=== PATIENT | male | born 1960 | race Caucasian/White ===

== ENCOUNTER → 2016-06-13 | Outpatient (CLI) | payer BC ==
[~2016-06-13] MED LIST: CHOL1000 PO; CHOL100010 PO; CLON0.5T3 PO; CZR50 PO; ESOM20CA PO; HYDR12.55 PO; MECL1TAB42 PO; MULT-506 PO; SUCR1TAB29 PO; ZNTT/150 PO
[2016-06-13 15:01] LABS: PROSTATE SPECIFIC ANTIGEN 7.12 ng/ml (0.000-4.000); THYROID STIMULATING HORMONE 0.801 uIu/ml (0.300-4.500)
== END | disposition home or self-care (01) ==
LOC: C.LABBC 10:59
PROVIDERS: ATTEND Urology
DX: N40.0 Benign prostatic hyperplasia without lower urinary tract symptoms (principal); R00.2 Palpitations

== ENCOUNTER → 2016-06-23 | Outpatient (CLI) | payer BC ==
[2016-06-23 10:14] LABS: BLOOD UREA NITROGEN 20 mg/dl (7-18)
== END | disposition home or self-care (01) ==
LOC: C.LAB 07:42
PROVIDERS: ATTEND Family Medicine
DX: Z00.00 Encounter for general adult medical examination without abnormal findings (principal)

== ENCOUNTER → 2016-06-27 | Outpatient (CLI) | payer BC ==
[~2016-06-27] MED LIST changes: +GADAVIST IV PRN
--- NOTE | 2016-06-27 08:42 | DIAGNOSTIC IMAGING REPORT ---
Brain MRI WITH AND WITHOUT CONTRAST HISTORY: Headaches. Dizziness. ARNOLD-CHIARI MALFORMATION TECHNIQUE: Multiplanar multisequence MRI of the brain was performed both before and after the intravenous administration of contrast. COMPARISON STUDY: Brain MRI 03/10/2009. FINDINGS: There are no areas of restricted diffusion to suggest acute infarction. The right cerebellar tonsil is positioned 2 mm below the foramen magnum. This is consistent with mild cerebellar tonsillar ectopia. This remains unchanged. No evidence for a Chiari malformation. The paranasal sinuses are clear. The mastoid air cells are clear. The ventricles and sulci are within normal limits for age. There is no mass, hematoma, midline shift. The major vascular flow-voids at the skull base are well maintained. Postcontrast sequences show no areas of abnormal enhancement. IMPRESSION: No acute intracranial abnormality. No change from the prior study. 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 Electronically signed by: Shane Camargo M.D. 06/27/2016 8:40 AM Dictated Date/Time: 06/27/2016 8:27 AM
== END | disposition home or self-care (01) ==
LOC: C.MRIBC 07:39
PROVIDERS: ATTEND Family Medicine
DX: G93.5 Compression of brain (principal)

== ENCOUNTER → 2016-07-28 | Outpatient (CLI) | payer BC ==
[~2016-07-28] MED LIST changes: -GADAVIST IV PRN
[2016-07-28 17:09] LABS: URINE APPEARANCE CLEAR (CLEAR); URINE BILIRUBIN NEG (NEG); URINE COLOR YELLOW; URINE EPITHELIAL CELL AUTO 0-5 /lpf (0-5); URINE NITRITE NEG (NEG); URINE SPECIFIC GRAVITY 1.014 (1.000-1.030); UROBILINOGEN NEG (NEG)
[2016-07-28 17:10] LABS: MANUAL MICROSCOPIC REQUIRED? NO; REVIEW REQ? NO
--- NOTE | 2016-09-04 11:35 | CODING QUERY NO DIAGNOSIS ---
: 1960 TREATMENT RENDERED WITHOUT A DIAGNOSIS To promote full compliance with coding requirements relating to patient care, physician participation is requested in all cases of weigh boss uncertainty. Please assist us with providing a diagnosis/symptom for the test(s) below: A diagnosis/symptom was not documented on your Order. A valid diagnosis/symptom is required to bill all insurances. Please remember that we are unable to code a diagnosis of rule out, probable, possible, questionable, or suspected. Tests that require a diagnosis: DOS: 07/28/16 URINE CULTURE DIAGNOSIS: URINALYSIS DIAGNOSIS: Provider Signature: Date: Thank you Quynh Kat [facility] Health Information Management Once completed, please kindly fax back to [phone] For questions please call [phone]
== END | disposition home or self-care (01) ==
LOC: C.LABBC 14:04
PROVIDERS: ATTEND Physician Assistant Medical
DX: R39.15 Urgency of urination (principal)

== ENCOUNTER → 2016-08-04 | Outpatient (CLI) | payer BC | END | disposition home or self-care (01) | LOC: C.LAB 07:21 | PROVIDERS: ATTEND Nurse Practitioner Family | DX: N40.0 Benign prostatic hyperplasia without lower urinary tract symptoms (principal) ==

== ENCOUNTER → 2016-09-20 | Outpatient (CLI) | payer BC ==
--- NOTE | 2016-09-21 05:35 | PAP/PSG TECHNICIAN REPORT ---
[facility] Cop Polysomnogram Report Study name: None Report date: 09/21/2016 Study date: 09/20/2016 Referring Physician: Cherelle Miller PA-C Name: MATTEO PRESTON Interpreting Physician: Sonny Mendoza M.D. Date of : 1960 Cop: Dede Sykes RPS. Sex: Male Age: 55 StudyType: PSG PAP Weight: 222 lbs Height: 55 years, Height 5' 10" Neck Circum:16in. BMI: 31.85 Medications: Clonazepam 0.5mg, HCTZ 25mg, Losartan Potassium 100mg, Meclizine HCl , Multi Vitamin, Nexium 40mg, Ranitidine HCL 75mg, Vit D 1000unit Patient History Study started on room air with 4cwp cpap in room #8. 55 yr old male here for a titration study. He is here for pressure settings. He is having problems when he sleeps on his back and his right side. He said he feels like his heart slows down. His ESS=8/24. Neck circ=16inches. Parameters Monitored NPSG: E1-M2, E2-M1, Fp1-M2, Fp2-M1, F3-M2, F4-M2, F4-M1, C3-M2, C4-M2, C4-M1, O1-M2, O2-M2, O2-M1, T3-M2, T4-M1, P3-M2, P4-M1, CHIN1, CHIN2, HR, EKG, Legs, PFLOW, SNOR, FLOW, CFLOW, Tidal Volume, THOR, ABDO, SpO2, PLTH, CPRESS, ETCO2 Wave, ETCO2, pH Sleep Architecture Sleep Stages Time at Lights Off 10:12:30 PM STAGES Time (min.) TST (%) Time at Lights On 5:04:30 AM Wake 69.0 -- Total Recording Time (TRT) 412.00 min. N1 15.0 4 Total Sleep Period (TSP) 371.0 min. N2 236.0 69 Total Sleep Time (TST) 343.0min. N3 29.5 9 Awake Time 69.0 min. REM 62.5 18 Wake after Sleep Onset 51.5 min. Sleep Efficiency (SE) 83 % Sleep Onset Latency (MARLEY) 17.5 min. Number of Stage 1 Shifts None Awakenings 14 Stage Changes 55 Number of REM periods 7 REM 62.5 18 REM Latency 46.5 min. NREM 280.5 82 Body Position Analysis Supine Right Left Side Prone Vertical Total Sleep Time (min.) 196.4 180.1 0.0 180.11 0.0 0.0 Total Sleep Time (%) 47% 53% 0% 53 0% N/A% Total Sleep Time REM (min.) 23.5 39.0 0.0 None 0.0 0.0 Total Sleep Time NREM (min.) 139.4 141.1 0.0 None 0.0 0.0 Intermittent Wake (min.) 33.5 35.5 0.0 None 0.0 0.0 Total Sleep Period (%) 48% None None None None None Arousals Myoclonus (PLM) * Events Count Index Events Count Index Spontaneous 11 2 Events Awake (PLMW) 52 45.2 Respiratory 1 0.2 Events Asleep w/ Arousal (PLMA) 1 0.2 PLM 1 0 Events Asleep w/o Arousal (PLMS) 25 4.4 Snoring 7 1 Total Asleep 26 4.5 Total 20 3 Total 78 11 Respiratory Analysis * CA OA MA CH H RERA Total Count 0 0 0 0 9 0 9 Index 0.0 0.0 0.0 0 1.6 0 1.6 Mean Duration 0.0 0.0 0.0 0.00 26.2 0.0 26.2 Longest Duration 0.0 0.0 0.0 0.00 0.0 0.0 51.8 Respiratory Event Summary Total Supine ~Supine Right Left Prone REM NREM Apneas Count 0 0 0 0 N/A N/A 0 0 Index 0.0 0 0 0.0 N/A N/A 0 0 Hypopneas (4% Desat) Count 9 9 0 0 N/A N/A 5 4 Index 1.6 3.3 0 0.0 N/A N/A 4.8 0.9 Apneas & All Hypopneas Count 9 9 0 0 N/A N/A 5 4 Index 1.6 3 0 0 N/A N/A 4.8 0.9 Respiratory Events (Aircraft Air Conditioning Mechanic+All Hyp+RERA) Count 9 9 0 0 N/A N/A 5 4 Index 1.6 3 0 0.0 N/A N/A 4.8 0.9 Respiratory Related Arousal Count 1 9 0 0 N/A N/A 0 1 Index 0.2 0 0 0 N/A N/A 0 0 Snoring Analysis Supine Right Left Prone REM NREM Total Snore duration 11.9 min Snores count 425 26 N/A N/A 18 433 451 Snore mean duration 1.6 Sec Snores index 157 9 N/A N/A 17.3 92.6 78.9 TST with snoring (%) 3.5% Desaturation Event Summary: Minimum %SpO2 Event Count Mean/Min/Max Duration(sec.) Desaturation Index % Time In Bed > 90 11 30.9 / 11.0 / 56.0 1.8 93.8 86 - 90 2 8.9 / 6.8 / 11.0 5.1 6.0 81 - 85 0 N/A 0.0 0.2 76 - 80 0 N/A 0.0 0.0 71 - 75 0 N/A 0.0 0.0 66 - 70 0 N/A 0.0 0.0 61 - 65 0 N/A 0.0 0.0 56 - 60 0 N/A 0.0 0.0 51 - 55 0 N/A 0.0 0.0 < 50 0 N/A 0.0 0.0 Total REM NREM Awake <50% 0.0 min. 0.0 min. 0.0 min. 0.0 min. 51 - 60% 0.0 min. 0.0 min. 0.0 min. 0.0 min. 61 - 70% 0.0 min. 0.0 min. 0.0 min. 0.0 min. 71 - 80% 0.0 min. 0.0 min. 0.0 min. 0.0 min. 81 - 90% 23.9 min. 10.3 min. 10.0 min. 3.6 min. 91 - 100% 363.4 min. 52.1 min. 268.8 min. 42.5 min. Average 92 91 92 92 Minimum SpO2 84 84 88 85 Desaturation Event Index 1.7 5.8 1.3 0.0 # Desat. Events below 89% 6 4 2 N/A Time(%) with Saturation below 89% 0.4 0.3 0.0 0.1 Time(min.) with Saturation below 89% 1.6 1.3 0.2 0.2 Time (mins) REM (mins) NREM (mins) % of TST SpO2 Below 90% 11 6 N5 1.4 SpO2 Below 88% 3 0 0 0 Heart Rate Analysis Min (bpm) Max (bpm) Average (bpm) Awake 49 87 58 NREM 49 81 54 REM 49 66 55 Overall 49 81 54 Supplemental O2 Values Minimum O2 level: None Value Start Time End Time Cop Comments Mr. Preston slept in the right and supine positions. No cardiac arrhythmia or PLM's noted. No bruxism noted. CPAP was initiated at +4 CMH2O and up-titrated to an optimal level of +7 CMH2O, which nearly eliminated all respiratory events and snoring. A medium Quattro Air full face mask by [employer] was used during titration He did not use the restroom during the night. He stated that he slept about the same as usual. The final report will be interpreted and signed by a sleep physician. The completed physician report will then be placed in the patient medical record. Therapy Event: Therapy (cm H20) 4 5 6 7 Total Time at Pressure (min.) 31.8 17.0 20.1 343.1 TST at Pressure (min.) 14.3 17.0 20.1 291.6 # Periods 1 1 1 1 Sleep Onset (min.) 17.5 0.0 0.0 0.0 REM Onset (min.) N/A N/A 15.3 0.0 Sleep Efficiency % 44 100 100 85 Wakefulness (%) 55.1 0.0 0.0 15.0 Wakefulness (min.) 17.5 0.0 0.0 51.5 NREM 1 (%) 6.3 0.0 0.0 3.8 NREM 1 (min.) 2.0 0.0 0.0 13.0 NREM 2 (%) 38.6 60.3 52.2 59.2 NREM 2 (min.) 12.3 10.2 10.5 203.0 NREM 3 (%) 0.0 39.7 23.6 5.2 NREM 3 (min.) 0.0 6.7 4.8 18.0 REM (%) 0.0 0.0 24.2 16.8 REM (min.) 0.0 0.0 4.9 57.6 # Arousals 1 0 3 16 Arousal Index 4.2 0.0 8.9 3.3 # Snore 127 158 35 131 Snore Index 534.0 558.4 104.4 27.0 AHI 0.0 0.0 20.9 0.4 AHI Supine 0.0 0.0 20.9 1.1 AHI Non-Supine N/A N/A N/A 0.0 NREM AHI 0.0 0.0 15.7 0.0 REM AHI N/A N/A 37.0 2.1 RDI 0.0 0.0 20.9 0.4 # Obstructive 0 0 0 0 # Central Ap 0 0 0 0 # Mixed 0 0 0 0 # Hypopneas 0 0 7 2 RERAS 0 0 0 0 Total Respiratory Events 0 0 7 2 Time Below SpO2 89.00% (min.) 0.0 0.0 0.6 0.8 Mean NREM SpO2 (%) 91 91 91 92 Mean REM SpO2 (%) N/A N/A 90 92 Mean Sleep SpO2 (%) 91 91 91 92 Min NREM SpO2 (%) 89 90 88 89 Min REM SpO2 (%) N/A N/A 86 84 Position Supine (min.) 14.3 17.0 20.1 111.5 Position Non-supine (min.) 0.0 0.0 0.0 180.1 LM Index Sleep 4.2 3.5 3.0 4.7 LM Index NREM 4.2 3.5 3.9 3.1 LM Index REM N/A N/A 0.0 11.5 Mean Heart Rate (bpm) 53 54 54 54 Min Heart Rate (bpm) 50 52 51 49
--- NOTE | 2016-09-25 17:33 | POLYSOMNOGRAPH REPORT ---
CLINICAL DATA: A 55-year-old male with a BMI of 31.9 referred by Cherelle Miller for CPAP titration study. He currently is on CPAP and uses clonazepam for PLMD. He is having problems whenever he sleeps on his back and right side. His Munger sleepiness score was 8/24. SLEEP ARCHITECTURE: Total recording time was 412 minutes. Total sleep period was 371 minutes. Total sleep time was 343 minutes divided between 280.5 minutes of non-REM sleep and 62.5 minutes of REM sleep. Sleep onset latency was 17.5 minutes. REM latency was 46.5 minutes. Sleep efficiency was 83%. Wake after sleep onset was 51.5 minutes. Sleep consisted of stage N1 4%, stage N2 69%, stage N3 9%, and REM 18%. AROUSAL DATA: Twenty arousals were recorded for an index of 3 per hour. PERIODIC LIMB MOVEMENTS DATA: Twenty six limb movements during sleep were noted for an index of 4.5 per hour with arousal index of 0.2 per hour. RESPIRATORY DATA: The AHI was 1.6. There were 9 hypopneic episodes with mean duration of 26.2 seconds. OXIMETRY DATA: Very transient nocturnal hypoxemia was seen. The oxygen fabrice was 84% during REM. The mean saturation was 92%. Time below 88% was 3 minutes. ELECTROCARDIOGRAM: Heart rates ranged from 49-81 beats per minute. No arrhythmias were noted. WHEEL WORKER'S COMMENTS AND TREATMENT SUMMARY: The patient slept in the right and supine positions. A medium Quattro Air full facemask by [employer] was used. He was titrated up to 7 cm water pressure. At his final pressure setting, he slept for 291.6 minutes with an AHI of 0.4. IMPRESSION: Obstructive sleep apnea corrected with CPAP 7 cm of water pressure using a medium Quattro full facemask by [employer]. RECOMMENDATIONS: The patient's CPAP should be adjusted to 7 cm of water pressure. Follow within 90 days to document efficacy and compliance is recommended. MICA
== END | disposition home or self-care (01) ==
LOC: C.NEUR 20:00
PROVIDERS: ATTEND Physician Assistant Medical
DX: G47.30 Sleep apnea, unspecified (principal)

== ENCOUNTER → 2016-10-19 | Day surgery (SDC) | payer BC ==
[2016-10-03 16:18] VITALS: Ht 177.8 cm; Wt 95.5 kg
[~2016-10-19] VITALS: Ht 177.8 cm; Wt 95.5 kg
[~2016-10-19] MED LIST changes: +IOPAMIDOL INJ 61% 15 ML VIAL ONE; +LIDOCAINE HCL 1% MPF 5 ML VIAL ONE; +SODIUM CHLORIDE 0.9% INJ 10 ML VIAL ONE; -ZNTT/150 PO
--- NOTE | 2016-10-19 13:47 | History & Physical Bridge - SC ---
H&P Re-Evaluation Bridge Note: I have examined the patient, reviewed the History & Physical and in the interval since the performance of the History & Physical I have noted the following changes of clinical significance: No changes noted
--- NOTE | 2016-10-19 14:20 | Discharge Instructions ---
Discharge Instructions Date of Service Oct 19, 2016. Visit Reason for Visit: Lumbar Radiculopathy Discharge Discharge Diagnosis / Problem: left leg pain Discharge Goals Goal(s): Decrease discomfort, Improve function Activity Recommendations Activity Limitations: resume your previous activity Anesthesia . Post Anesthesia Instructions: If you have had General Anesthesia or IV Sedation: * Do not drive today. * Resume driving when surgeon permits. * Do not make important decisions or sign legal documents today. * Call surgeon for: 1. Temperature elevations greater than 101 degrees F. 2. Uncontrollable pain. 3. Excessive bleeding. 4. Persistent nausea and vomiting. 5. Medication intolerance (nausea, vomiting or rash). * For nausea and vomiting use only clear liquids such as: tea, soda, bouillon until nausea subsides, then gradually increase diet as tolerated. * If you have any concerns or questions, call your surgeon's office. If physician is unavailable and it is an emergency, call 911 or go to the nearest emergency room. . Diet Recommendations Recommended Home Diet: resume previous diet Procedures Procedures Performed: LUMBAR EPIDURAL STEROID INJECTION Pending Studies Studies pending at discharge: no Medical Emergencies . Who to Call and When: Medical Emergencies: If at any time you feel your situation is an emergency, please call 911 immediately. . Non-Emergent Contact Non-Emergency issues call your: Specialist . . "Provider Documentation" section prepared by Javon Kim. .
[2016-10-19 14:33] VITALS: BP 145/88; PULSE 60; TEMP 37.1; O2SAT 97
--- NOTE | 2016-10-19 15:17 | OPERATIVE REPORT ---
DATE OF OPERATION: 10/19/2016 PREOPERATIVE DIAGNOSIS: L4-L5 disc herniation with a left L5 radiculopathy. POSTOPERATIVE DIAGNOSIS: Same. PROCEDURE: Left paramedian L5-S1 intralaminar epidural steroid injection under fluoroscopic guidance. SURGEON: Dr. Javon iKm. INDICATIONS: The patient is a 55-year-old white male who last received an epidural injection in May 2014 and has done relatively well since that time until the recent exacerbation. He presents today as he did not get any relief with an oral prednisone taper and wishes the intralaminar epidural steroid injection to provide him with relief as it has in the past. PHYSICAL EXAMINATION: Pleasant male seated comfortably. He has some tenderness to palpation of the paraspinal muscles. Negative seated straight leg raises, intact sensation. No focal weakness. CONSENT: Verbal and written consent was obtained from the patient. Risks and benefits were reviewed. Risks include but are not limited to epidural abscess, epidural hematoma, allergic reaction, dural puncture. The patient wishes to proceed. PROCEDURE: The patient was taken back to the special procedures room of the [facility] where he was maintained in a prone position. Backside was cleansed with Betadine x3 and a dry sterile dressing was applied. Fluoroscope was used to identify the L5-S1 intralaminar space. Overlying skin on the left side was anesthetized with 4 mL of lidocaine 1% with a 25 gauge 1.5-inch needle. A 22-gauge 3-1/2 inch Tuohy needle was then directed down towards the intralaminar space. It was advanced under lateral fluoroscopic guidance and loss of resistance was noted at a depth of just under 7 cm. Isovue-300 contrast 1 mL was injected in which demonstrated epidural uptake pattern which was confirmed with lateral view. He then underwent injection after negative aspiration of 40 mg of Depo-Medrol and 4 mL of preservative free sodium chloride. Injection was well tolerated. DISPOSITION: 1. The patient is taken out into the discharge recovery area where he will be discharged home once discharge criteria have been met. 2. Follow up in the [facility] office in 2-4 weeks. I attest to the content of the Intraoperative Record and any orders documented therein. Any exception s are noted below.
== END | disposition home or self-care (01) ==
LOC: X.SURG 13:05
PROVIDERS: ATTEND Physical Medicine & Rehabilitation
DX: M51.16 Intervertebral disc disorders with radiculopathy, lumbar region (principal)

== ENCOUNTER → 2017-02-01 | Outpatient (CLI) | payer BC ==
[~2017-02-01] MED LIST changes: -CHOL1000 PO; -IOPAMIDOL INJ 61% 15 ML VIAL ONE; -LIDOCAINE HCL 1% MPF 5 ML VIAL ONE; -SODIUM CHLORIDE 0.9% INJ 10 ML VIAL ONE
[2017-02-01 10:03] LABS: ALT/SGPT 36 U/L (12-78); AST/SGOT 20 U/L (15-37); BLOOD UREA NITROGEN 15 mg/dl (7-18); BUN/CREATININE RATIO 14.7 (10-20); CALCIUM 8.8 mg/dl (8.5-10.1); CARBON DIOXIDE 31 mmol/L (21-32); CHLORIDE 103 mmol/L (98-107); CREATININE 1.01 mg/dl (0.60-1.40); GLUCOSE 108 mg/dl (70-99); POTASSIUM 3.4 mmol/L (3.5-5.1); SODIUM 138 mmol/L (136-145); TRIGLYCERIDES 171 mg/dl (0-150); VERY LOW DENSITY LIPOPROT CALC 34 mg/dl
[2017-02-01 10:07] LABS: ALB/GLOB RATIO 1.2 (0.9-2); ALKALINE PHOSPHATASE 70 U/L (45-117); CHOLESTEROL 160 mg/dl (0-200); CHOLESTEROL/HDL RATIO 3.9; HDL CHOLESTEROL 41 mg/dl; LDL CHOLESTEROL CALCULATED 85 mg/dl
== END | disposition home or self-care (01) ==
LOC: C.LAB 07:22
PROVIDERS: ATTEND Physician Assistant Medical
DX: N28.1 Cyst of kidney, acquired (principal); I10 Essential (primary) hypertension; E78.5 Hyperlipidemia, unspecified; R42 Dizziness and giddiness

== ENCOUNTER 2017-04-04 05:11 | Emergency (ER) | payer BC ==
[~2017-04-04] VITALS: Ht 177.8 cm; Wt 101.5 kg
[2017-04-04 05:12] VITALS: TEMP 36.7; Ht 177.8 cm; Wt 101.5 kg
[2017-04-04 05:45] LABS: BASO % 1.1 %; BASO ABS # 0.05 K/uL (0-0.2); EOS % 1.9 %; EOS ABS # 0.09 K/uL (0-0.5); HEMATOCRIT 46.8 % (42-52); HEMOGLOBIN 16.9 g/dL (14.0-18.0); LYMPH % 29.2 %; LYMPH ABS # 1.35 K/uL (1.2-3.4); MEAN CELL VOLUME 87.5 fL (80-100); MEAN CORPUSCULAR HEMOGLOBIN 31.6 pg (25-34); MEAN CORPUSCULAR HGB CONC 36.1 g/dl (32-36); MEAN PLATELET VOLUME 9.3 fL (7.4-10.4); MONO % 13.2 %; MONO ABS # 0.61 K/uL (0.11-0.59); NEUT % 54.6 %; NEUT ABS # 2.53 K/uL (1.4-6.5); PLATELET COUNT 220 K/uL (130-400); RED CELL DISTRIBUTION WIDTH CV 12.4 % (11.5-14.5); RED CELL DISTRIBUTION WIDTH SD 39.5 fL (36.4-46.3); WHITE BLOOD COUNT 4.63 K/uL (4.8-10.8)
[2017-04-04] MEDS ORDERED: SODIUM CHLORIDE 0.9% 1000ML 1,000 ML IV ONE (05:45)
[2017-04-04 06:03] LABS: CALCIUM 8.8 mg/dl (8.5-10.1); CREATININE 0.96 mg/dl (0.60-1.40); POTASSIUM 3.3 mmol/L (3.5-5.1)
[2017-04-04 06:06] LABS: TOTAL PROTEIN 7.3 gm/dl (6.4-8.2)
[2017-04-04 06:09] VITALS: O2SAT 97
--- NOTE | 2017-04-04 06:32 | DIAGNOSTIC IMAGING REPORT ---
CHEST ONE VIEW PORTABLE CLINICAL HISTORY: Chest pain COMPARISON STUDY: Chest radiograph August 12, 2014. FINDINGS: The lung volumes are normal. No pneumothorax or pleural effusion is noted. There is no consolidation to suggest pneumonia. Cardiomediastinal silhouette is normal. IMPRESSION: No acute cardiopulmonary findings. Electronically signed by: Kemar Collins M.D. 04/04/2017 6:31 AM Dictated Date/Time: 04/04/2017 6:30 AM
[2017-04-04] MEDS ORDERED: CHOL100027 PO (06:35)
[2017-04-04] MEDS ORDERED: LOSA1TAB38 PO (06:35)
--- NOTE | 2017-04-04 07:21 | EMERGENCY ROOM VISIT NOTE ---
History First contact with patient: 05:22 Chief Complaint: CARDIAC ASSESSMENT Stated Complaint: EXPERIENCING A CARDIAC EVENT Nursing Triage Summary: Pt reports he was laying on his right side and when he rolled over he felt like his heart "slowed down". Pt states he had some associated dizziness that continues to persist. Right sided facial droop noted, pt states droop present since . History of Present Illness The patient is a 56 year old male who presents to the Emergency Room with complaints of lightheadedness and dizziness that began over the past 2 hours. The patient states that he was asleep in his bed landing on his right side, rolled over to his left side, and felt his heart was racing. He had some lightheadedness that has been persistent ever since. The patient states he has had this occur several times in the past, and has previously followed with cardiology with diagnosis. The patient reports some vague and mild illness last week but no persistent fever. He does not have distinct chest pain or shortness of breath at this time. He is able to ambulate without difficulty. He did drive to and from [facility] about 3 weeks ago. No other recent travel history. He does not have any radiation of pain and rates his overall discomfort a 4/10. Review of Systems More than 10 systems were reviewed and otherwise negative with the exception of history of present illness. Past Medical/Surgical History Medical Problems: (1) Alcaraz's palsy (2) HTN (hypertension) (3) Kidney stone Surgical Problems: (1) [place] teeth extracted Family History FH: cancer FH: heart disease Hypertension Seizures Social History Smoking Status: Never Smoker Alcohol Use: occasionally Marital Status: Housing Status: lives with significant other Occupation Status: employed Current/Historical Medications Scheduled Cholecalciferol (Vitamin D 1000 Unit), 1,000 INTER.UNIT PO DAILY Esomeprazole Magnesium (Nexium), 20 MG PO QAM Hydrochlorothiazide (Hydrochlorothiazide), 12.5 MG PO QAM Losartan Potassium (Cozaar), 100 MG PO QAM Multivitamin (Multivitamin), 1 TAB PO QAM Scheduled PRN Clonazepam (Klonopin), 0.5 MG PO HS PRN for Sleep Meclizine Hcl (Meclizine Hcl), 25 MG PO Q8 PRN for VERTIGO Sucralfate (Carafate), 1 TAB PO DAILY PRN for Dyspepsia Physical Exam Vital Signs Date Time Temp Pulse Resp B/P (MAP) Pulse Ox O2 Delivery O2 Flow Rate FiO2 04/04/17 06:09 56 18 128/78 97 Room Air 04/04/17 05:38 Room Air 04/04/17 05:22 60 04/04/17 05:20 96 Room Air 04/04/17 05:12 36.7 72 16 153/97 97 Room Air Physical Exam VITALS: Vitals are noted on the nurse's note and reviewed by myself. Vital signs stable. GENERAL: Well-developed, well-nourished, white male, who is in no acute distress and resting comfortably. Patient is cooperative with the examination. HEAD: Normocephalic atraumatic. EARS: External ear normal. External auditory canals clear, tympanic membranes pearly fallon without erythema or effusion bilaterally. EYES: Pupils equal round and reactive to light and accommodation. Conjunctivae without injection, sclerae without icterus. Extraocular movements intact. NOSE: Patent, turbinates without inflammation or discharge. MOUTH: Mucous membranes moist. Tonsils are not enlarged. Pharynx without erythema, blood, or exudate. Uvula midline. Airway patent. NECK: Supple without nuchal rigidity. No lymphadenopathy. No thyromegaly. Cervical spine is nontender. HEART: Regular rate and rhythm without murmurs gallops or rubs. LUNGS: Clear to auscultation bilaterally without wheezes, rales or rhonchi. No retractions or accessory muscle use. ABDOMEN: Positive normal bowel sounds x 4. Soft, nontender, without masses or organomegaly. No guarding or rebound tenderness. MUSCULOSKELETAL: No muscle atrophy, erythema, or edema noted. Full range of motion without joint tenderness in all extremities Medical Decision & Procedures ER Provider Diagnostic Interpretation: CHEST ONE VIEW PORTABLE CLINICAL HISTORY: Chest pain COMPARISON STUDY: Chest radiograph August 12, 2014. FINDINGS: The lung volumes are normal. No pneumothorax or pleural effusion is noted. There is no consolidation to suggest pneumonia. Cardiomediastinal silhouette is normal. IMPRESSION: No acute cardiopulmonary findings. Laboratory Results 04/04/17 05:25 Red Blood Count 5.35, Mean Corpuscular Volume 87.5, Mean Corpuscular Hemoglobin 31.6, Mean Corpuscular Hemoglobin Concent 36.1, Mean Platelet Volume 9.3, Neutrophils (%) (Auto) 54.6, Lymphocytes (%) (Auto) 29.2, Monocytes (%) (Auto) 13.2, Eosinophils (%) (Auto) 1.9, Basophils (%) (Auto) 1.1, Neutrophils # (Auto ) 2.53, Lymphocytes # (Auto) 1.35, Monocytes # (Auto) 0.61, Eosinophils # (Auto ) 0.09, Basophils # (Auto) 0.05 04/04/17 05:25 Test 04/04/17 05:25 04/04/17 05:33 White Blood Count 4.63 K/uL (4.8-10.8) Red Blood Count 5.35 M/uL (4.7-6.1) Hemoglobin 16.9 g/dL (14.0-18.0) Hematocrit 46.8 % (42-52) Mean Corpuscular Volume 87.5 fL (80-100) Mean Corpuscular Hemoglobin 31.6 pg (25-34) Mean Corpuscular Hemoglobin Concent 36.1 g/dl (32-36) Platelet Count 220 K/uL (130-400) Mean Platelet Volume 9.3 fL (7.4-10.4) Neutrophils (%) (Auto) 54.6 % Lymphocytes (%) (Auto) 29.2 % Monocytes (%) (Auto) 13.2 % Eosinophils (%) (Auto) 1.9 % Basophils (%) (Auto) 1.1 % Neutrophils # (Auto) 2.53 K/uL (1.4-6.5) Lymphocytes # (Auto) 1.35 K/uL (1.2-3.4) Monocytes # (Auto) 0.61 K/uL (0.11-0.59) Eosinophils # (Auto) 0.09 K/uL (0-0.5) Basophils # (Auto) 0.05 K/uL (0-0.2) RDW Standard Deviation 39.5 fL (36.4-46.3) RDW Coefficient of Variation 12.4 % (11.5-14.5) Immature Granulocyte % (Auto) 0.0 % Immature Granulocyte # (Auto) 0.00 K/uL (0.00-0.02) Anion Gap 6.0 mmol/L (3-11) Est Creatinine Clear Calc Drug Dose 103.8 ml/min Estimated GFR () 102.7 Estimated GFR (Non- 88.6 BUN/Creatinine Ratio 17.0 (10-20) Calcium Level 8.8 mg/dl (8.5-10.1) Total Bilirubin 0.8 mg/dl (0.2-1) Aspartate Amino Transf (AST/SGOT) 29 U/L (15-37) Alanine Aminotransferase (ALT/SGPT) 48 U/L (12-78) Alkaline Phosphatase 69 U/L (45-117) Total Protein 7.3 gm/dl (6.4-8.2) Albumin 4.0 gm/dl (3.4-5.0) Globulin 3.3 gm/dl (2.5-4.0) Albumin/Globulin Ratio 1.2 (0.9-2) Lipase 140 U/L (73-393) Bedside D-Dimer 120 ng/mlFEU (0-450) Bedside Troponin I < 0.030 ng/ml (0-0.045) Medications Administered Medications (Trade) Dose Ordered Sig/Alejandro Route Start Time Stop Time Status Last Admin Dose Admin Sodium Chloride 1,000 ml @ 999 mls/hr Q1H1M ONCE IV 04/04/17 05:45 04/04/17 06:45 DC 04/04/17 05:41 999 MLS/HR ECG Per My Interpretation Change: Normal sinus rhythm @[address] elevation Normal ECG When compared with ECG of 16-OCT-2014 19:50 ED Course Physical exam and history were performed. Nursing notes, EMR, and Medication List were personally reviewed. Patient appears to have lightheadedness and mild chest discomfort that brings him to the ER tonight. EKG was performed and is as above. IV access was established and labs were obtained. The patient was hydrated with normal saline. He is placed on the cardiac sonographer. The patient's blood work is as above and was reviewed. He does not have a significantly elevated white blood cell count, gross anemia, bandemia, or significant electrolyte imbalance. Lipase and transaminases are nondiagnostic. TSH issues aren't state. Troponin and d-dimer 1 are both negative. He remained in normal sinus rhythm on the cardiac sonographer. Chest x-ray was reviewed by myself and radiology showing no acute process. The patient was reevaluated multiple times with course of his stay. He continued to remain stable without any worsening of his symptoms. The case was discussed with my attending physician, and overall he feels the patient is well for discharge home. The patient does have outpatient cardiology available, as he has [facility] [place] in the past for this. I do recommend that he follow with his PCP and cardiology. This week for further care and management. The patient was certainly invited back to the ER with any new, worsening, or concerning symptoms. The chart was completed utilizing [employer] Speech Voice Recognition Software. Grammatical errors, random word insertions, pronoun errors, and incomplete sentences are an occasional consequence of this system due to software limitations, ambient noise, and hardware issues. Any formal questions or concerns about the content, text, or information contained within the body of this dictation should be directly addressed to the provider for clarification. . Medical Decision Differential diagnosis: Etiologies such as vasovagal event, infection, hypoglycemia, electrolyte abnormalities, cardiac sources, intracerebral event, toxicologic, neurologic, as well as others were entertained. Impression Primary Impression: Lightheadedness Additional Impression: Chest discomfort Departure Information Dispostion Home / Self-Care Condition GOOD Forms IMPORTANT VISIT INFORMATION Patient Instructions My Construct Additional Instructions You were seen and evaluated today on an emergency basis only. This is not a substitute for, or an effort to provide, complete comprehensive medical care. It is not possible to recognize and treat all injuries or illnesses in a single emergency department visit. For this reason it is recommended that you followup with your primary care physician this week for ongoing care and evaluation. We also recommended follow up with cardiology. Drink plenty of fluids and remain well hydrated. You are welcome to return to the emergency department anytime with new, worsening, or concerning symptoms. Problem Qualifiers
[2017-04-04 07:30] VITALS: BP 134/91; PULSE 56
== END 2017-04-04 08:05 | disposition home or self-care (01) ==
LOC: C.EDB 05:12
DX: R42 Dizziness and giddiness (principal); R07.89 Other chest pain; I10 Essential (primary) hypertension; G51.0 Bell's palsy; Z87.442 Personal history of urinary calculi; Z82.49 Family history of ischemic heart disease and other diseases of the circulatory system; Z82.0 Family history of epilepsy and other diseases of the nervous system

== ENCOUNTER → 2017-05-02 | Outpatient (CLI) | payer BC ==
[~2017-05-02] MED LIST changes: -CHOL100010 PO; +CHOL100027 PO; -CZR50 PO; +LOSA1TAB38 PO
[2017-05-02 17:34] LABS: BLOOD UREA NITROGEN 12 mg/dl (7-18); CALCIUM 9.4 mg/dl (8.5-10.1); CARBON DIOXIDE 30 mmol/L (21-32); CREATININE 1.06 mg/dl (0.60-1.40); GLUCOSE 89 mg/dl (70-99); POTASSIUM 3.3 mmol/L (3.5-5.1); SODIUM 139 mmol/L (136-145)
[2017-05-03 06:26] LABS: HEMOGLOBIN A1C 5.4 % (4.5-5.6)
== END | disposition home or self-care (01) ==
LOC: C.LABBC 14:05
PROVIDERS: ATTEND Nurse Practitioner Adult Health
DX: R00.2 Palpitations (principal); I10 Essential (primary) hypertension; R73.09 Other abnormal glucose

== ENCOUNTER 2024-12-29 12:35 | Inpatient (IN) ==
--- NOTE | 2024-12-29 13:36 | Emergency Department Note ---
ED Provider Note History of Present Illness Chief Complaint: Chest Pain Stated Complaint: CHEST PAIN, SOB Time Seen by Provider: 12/29/24 13:13 64-year-old male who presents to the emergency department with his (who also provides history) for evaluation of intermittent chest pain for the past month. The reports that he has been complaining of chest discomfort while [place] in [place]. The patient reports that the pain is worsened with exertion, improved with rest. He denies any pain radiating into the back or abdomen. He does report a history of an aortic aneurysm. The patient denies any sweatiness with chest pain, but does occasionally get nausea. The patient reports that he has marginal hypercholesterolemia, with his family doctor suggesting treatment. The patient reports that he did try medications but could not tolerate the side effects. He also reports a history of hypertension that is well-controlled. He does have a family history of heart disease as well. The patient currently rates his discomfort a 5 out of 10. Home Medications Medication Instructions Recorded Confirmed Type multivitamin 1 tab PO QAM 07/05/18 12/29/24 History cholecalciferol (vitamin D3) 25 1,000 unit PO DAILY 07/30/18 12/29/24 History mcg (1,000 unit) capsule (Vitamin D3) magnesium 200 mg tablet 200 mg PO DAILY 07/30/18 12/29/24 History albuterol sulfate 90 mcg/actuation 2 puff inhalation Q6H PRN 04/18/22 12/29/24 Rx aerosol inhaler shortness of breath or wheezing #8.5 grams CPAP Supplies #1 ea 09/19/22 09/11/24 Rx meclizine 50 mg tablet 50 mg PO DAILY PRN dizziness #60 01/17/23 12/29/24 Rx tabs clonazepam 0.5 mg tablet 0.25 mg PO TID PRN Anxiety 07/06/23 12/29/24 History esomeprazole magnesium 40 mg 40 mg PO DAILY #60 caps 07/31/23 12/29/24 Rx capsule,delayed release potassium chloride 20 mEq 40 meq (2 x 20 mEq) PO HS #180 tabs 01/07/24 12/29/24 Rx tablet,extended release amlodipine 5 mg-valsartan 160 mg See Rx Instructions .Route 04/24/24 12/29/24 Rx tablet .COMPLEX #90 tabs psyllium husk 0.52 gram capsule 1.04 g PO DAILY 04/24/24 12/29/24 History nystatin-triamcinolone 100,000 1 applic topical BID PRN Rash 09/11/24 12/29/24 History unit/g-0.1 % topical cream hydrochlorothiazide 25 mg tablet 25 mg PO DAILY #90 tabs 09/24/24 12/29/24 Rx Allergies Allergy/AdvReac Type Severity Reaction Status Date / Time clarithromycin Allergy Mild HIVES Verified 12/29/24 16:00 nut - unspecified Allergy Mild mouth Verified 12/29/24 16:00 ulcers Penicillins Allergy Unknown HIVES Verified 12/29/24 16:00 Sulfa (Sulfonamide Allergy Unknown HIVES Verified 12/29/24 16:00 Antibiotics) ciprofloxacin AdvReac Severe Contraindicated Verified 12/29/24 16:00 by aneurysm aspirin AdvReac Mild STOMACH Verified 12/29/24 16:00 ISSUES amlodipine AdvReac Unknown LEG Verified 12/29/24 16:00 SWELLING crestor AdvReac Mild Muscle Pain Uncoded 12/29/24 16:00 fluoroquinolones AdvReac Unknown Unknown Uncoded 12/29/24 16:00 Past Med/Surg History Problem List (Updated 12/29/24 @ 15:42 by Eugene Plunkett) Hypertension (Acute) Hyperlipidemia (Acute) Chest pain, exertional (Acute) Gross hematuria Hyperlipidemia Vertigo Pre-diabetes Medical History (Updated 12/29/24 @ 15:42 by Eugene Plunkett) Benign localized prostatic hyperplasia with lower urinary tract symptoms (LUTS) Sleep apnea CPAP monitored by PCP GERD (gastroesophageal reflux disease) HTN (hypertension) Pulmonary nodule Ct 07/2023, repeat 6 mos Aortic regurgitation Ascending aortic aneurysm (~08/2023) Following with [facility], Obesity, class 2 Arnold-Chiari malformation, type I (~2006) not seen on most recent MRI 2019 Statin myopathy Diverticulosis Left-sided tinnitus Sensorineural hearing loss (SNHL) of left ear with unrestricted hearing of right ear Kidney stones, calcium oxalate Restless legs syndrome Multiple pulmonary nodules (~2007) Completed Evaluation Cyst of kidney, acquired (~2014) H. 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 Surgical History History of colonoscopy Colonoscopy: 08/02/21. Repeat [address] Jose. Lipomatous ileoceccal valve biopsied. No pathology report available. Per GI notes 01/26/22 plan to repeat in 10 years. History of dental surgery History of cholecystectomy Family History Mother Discoid lupus Hypertension Breast cancer Father Prostate cancer FHx: kidney cancer Grandfather Colon cancer Cardiac disorder Myocardial infarction Uncle Colon cancer Denies family history of Ovarian cancer Diabetes Stroke Social History Smoking Status: Never smoker Second Hand Exposure: No; Do You Dip or Chew Tobacco: No; Hx Alcohol Use: Yes Alcohol type: beer Alcohol Intake Frequency Comment: occassional Hx Substance Use: No Preferred Language: [place] Communication Ability: Effective Visual Impairment: Limited Hearing Ability: Normal Manager Professional Development Required: No Beliefs That Will Affect Care: None marital status: Current Living Situation: Spouse Current Living Situation Comment: 1 story house current occupational status: employed How many Children do You have: 2 Feels Safe at Home: Yes Childhood Exposure to Second-Hand Smoke: No Diet: regular caffeine: No Dental Care, Regularly: Yes Physical Activity Frequency: Daily Seatbelt Use: always Sunscreen Use: Yes Do you think of yourself as: straight/heterosexual Assistive Devices: None Physical Exam Vital Signs Vital Signs - 24 hr 12/29/24 12:41 12/29/24 13:10 12/29/24 13:10 Temperature 36.6 C Temperature Source Temporal Artery Scan Pulse Rate 68 60 Pulse Rate [Apical] Pulse Rhythm [Apical] Pulse Strength [Apical] Respiratory Rate 18 20 Respiratory Effort / Characteristics Non-Labored Spontaneous Respiratory Depth Normal Respiratory Pattern Regular Blood Pressure 178/92 H Blood Pressure [Right Arm] Blood Pressure Mean 120 Blood Pressure Mean [Right Arm] Blood Pressure Position Sitting Blood Pressure Position [Right Arm] Pulse Oximetry 96 94 94 Oxygen Delivery Method Room Air Room Air Room Air Sepsis Recent Fever Within 48 Hours No Sepsis New/Unexplained Change in Mental Status No Sepsis Action Taken by Nursing No Action Required 12/29/24 13:14 12/29/24 14:36 12/29/24 14:52 Temperature Temperature Source Pulse Rate 59 L Pulse Rate [Apical] 54 L 61 Pulse Rhythm [Apical] Regular Pulse Strength [Apical] Normal Respiratory Rate 23 20 Respiratory Effort / Characteristics Non-Labored Spontaneous Spontaneous Respiratory Depth Normal Respiratory Pattern Regular Regular Blood Pressure Blood Pressure [Right Arm] 155/87 H 135/72 Blood Pressure Mean Blood Pressure Mean [Right Arm] 109 93 Blood Pressure Position Blood Pressure Position [Right Arm] Sitting Sitting Pulse Oximetry 95 90 Oxygen Delivery Method Room Air Room Air Sepsis Recent Fever Within 48 Hours Sepsis New/Unexplained Change in Mental Status Sepsis Action Taken by Nursing CONSTITUTIONAL: Healthy and well nourished. Patient does not appear in any acute distress, but does report mild central chest pressure. HEENT: No scleral icterus or conjunctival injection/pallor. NECK: Full active range of motion without discomfort. No JVD or carotid bruits appreciated. RESPIRATORY: Clear to auscultation bilaterally with no wheezing, crackles, rhonchi or stridor. CARDIOVASCULAR: Regular rate and rhythm with no murmurs, rubs or gallops. GASTROINTESTINAL: Bowel sounds present in all quadrants. Abdomen is protuberant but soft and nontender to palpation. MUSCULOSKELETAL: Full range of motion of all joints without discomfort. INTEGUMENTARY: No rash or other significant dermatologic conditions noted. HEMATOLOGIC: No ecchymosis or petechiae. PSYCHIATRIC: Positive affect. NEUROLOGIC: No focal neurologic deficits noted. Course Course Patient history and physical exam were performed. Nursing notes were reviewed. Vital signs are reviewed from triage, showing an elevated blood pressure of 178/92. The patient is not tachycardic, tachypneic or hypoxic. IV access was established, and labs were ordered and drawn. The patient initially refused any medications, with the patient reporting that he has notable GI upset with aspirin. An ECG was performed showing a sinus rhythm with PACs. The patient was placed on guidance counselor while in the emergency department. Review of labs showed a normal CBC. Patient is mildly hypokalemic at 3.4, otherwise remaining electrolytes are normal. Troponin is normal. Peripheral smear is for Babesia and Anaplasma are negative. Urinalysis shows no proteinuria, hematuria or other concerning findings. Lyme screen is also negative. I did convince the patient to take an aspirin chew, but was also administered IV Zofran as he reports that it causes nausea. Patient was also administered nitroglycerin which did not provide any relief. At this point, I did discuss the patient's risk factors, and highly suggested hospitalist evaluation for admission and further testing. The patient was in agreement with this plan. The case was also discussed with Dr. Moore, ED attending surgeon, who agrees with workup and hospitalist evaluation. The case was then discussed with the [facility] hospitalist service, who did evaluation the patient and agrees with further observation. Please see their dictation for further treatment and final disposition. Administered Medications Amlodipine Besylate (Amlodipine Besylate 5 Mg Tab) 5 mg PO DAILY LÓPEZ Stop: 01/29/25 08:59 Last Admin: 12/30/24 08:41 Dose: 5 mg Documented By: LMP Hydrochlorothiazide (Hydrochlorothiazide 25 Mg Tab) 25 mg PO DAILY LÓPEZ Stop: 01/29/25 08:59 Last Admin: 12/30/24 08:40 Dose: 25 mg Documented By: LMP Magnesium Oxide (Magnesium Oxide 400 Mg Tab) 200 mg PO DAILY LÓPEZ Stop: 01/29/25 08:59 Last Admin: 12/30/24 09:29 Dose: 200 mg Documented By: LMP Nitroglycerin (Nitroglycerin Sl 0.4 Mg/Tab Tab) 0.4 mg SL Q5M PRN PRN Reason: Chest Pain Stop: 01/28/25 14:31 Last Admin: 12/29/24 14:40 Dose: 0.4 mg Documented By: [facility] [place] Pantoprazole Sodium (Pantoprazole 40 Mg Tab) 40 mg PO QAM LÓPEZ Stop: 01/29/25 08:59 Last Admin: 12/30/24 09:30 Dose: 40 mg Documented By: LMP Potassium Chloride (Potassium Chloride Crtab 20 Meq Tabcr) 20 meq PO QAM LÓPEZ Stop: 01/29/25 08:59 Last Admin: 12/30/24 08:40 Dose: 20 meq Documented By: LMP Valsartan (Valsartan 80 Mg Tab) 160 mg PO DAILY LÓPEZ Stop: 01/29/25 08:59 Last Admin: 12/30/24 08:41 Dose: 160 mg Documented By: LMP Vitamin D (Cholecalciferol 25 Mcg (1000 Units) Tab) 25 mcg PO DAILY LÓPEZ Stop: 01/29/25 08:59 Last Admin: 12/30/24 08:40 Dose: 25 mcg Documented By: LMP Discontinued Medications Ondansetron HCl (Ondansetron Inj 2 Mg/Ml 2 Ml Vial) 4 mg IV NOW STA Stop: 12/29/24 14:33 Last Admin: 12/29/24 14:40 Dose: 4 mg Documented By: [facility] [place] Pneumococcal 20-Valent Conj Vacc (Pneumococcal Vaccine (Pcv20) 20-Lizabeth Conj-Dip Crm/Pf 0.5 Ml Syr) 0.5 ml IM .ONCE ONE Stop: 12/29/24 19:28 Last Admin: 12/29/24 21:58 Dose: Not Given Documented By: [facility] Medical Decision Making Medical Records Attestation: I reviewed the patient's medical records. Home Medications was personally reviewed by dc Laboratory Data Attestation: I reviewed the patient's lab results. 12/29/24 12:52 12/29/24 12:52 Lab Results 12/29/24 12/29/24 12/29/24 Range/Units 12:52 13:45 14:14 WBC 5.74 (4.8-10.8) K/ul RBC 5.62 (4.70-6.10) M/uL Hgb 17.4 (14.0-18.0) g/dL Hct 49.8 (42.0-52.0) % MCV 88.6 (80.0-100.0) fL MCH 31.0 (25.0-34.0) pg MCHC 34.9 (32.0-36.0) g/dL RDW Std Deviation 41.1 (36.4-46.3) fL RDW Coeff of Calin 12.6 (11.5-14.5) % Plt Count 252 (130-400) K/uL MPV 9.9 (9.4-12.4) fL Immature Gran % (Auto) 0.0 % Neut % (Auto) 65.5 % Lymph % (Auto) 23.0 % [place] % (Auto) 9.9 % Eos % (Auto) 0.7 % Baso % (Auto) 0.9 % Neut # (Auto) 3.76 (1.40-6.50) K/uL Lymph # (Auto) 1.32 (1.20-3.40) K/uL Churchill # (Auto) 0.57 (0.11-0.59) K/uL Eos # (Auto) 0.04 (0.00-0.50) K/uL Baso # (Auto) 0.05 (0.00-0.20) K/uL Immature Gran # (Auto) 0.00 L (0.01-0.20) K/uL ESR 5 (0-20) mm/hr PT 11.0 (9.0-12.0) Seconds INR 1.0 (0.9-1.1) APTT 29 (21-31) Seconds PTT Ratio 1.1 Sodium 138 (136-145) mmol/L Potassium 3.4 L (3.5-5.1) mmol/L Chloride 105 (98-107) mmol/L Carbon Dioxide 25 (21-32) mmol/L Anion Gap 8 (3-11) BUN 16 (6-23) mg/dl Creatinine 0.95 (0.6-1.4) mg/dl Est Cr Clr Drug Dosing 97.8 ml/min eGFR 89.94 BUN/Creatinine Ratio 16.8 (10-20) Glucose 110 H (70-99(Fasting)) mg/dl Calcium 9.3 (8.6-10.3) mg/dl Total Bilirubin 0.9 (0.2-1.0) mg/dl AST 24 (13-39) U/L ALT 31 (7-52) U/L Alkaline Phosphatase 57 (34-104) U/L Troponin I High Sens 3.1 (0-20) pg/ml C-Reactive Protein < 0.50 (0-0.5) mg/dl B-Natriuretic Peptide 32 (0-100) pg/ml Total Protein 7.5 (6.0-8.3) gm/dl Albumin 4.4 (3.4-5.0) gm/dl Globulin 3.1 (2.5-4.0) gm/dl Albumin/Globulin Ratio 1.4 (0.9-2) Urine Color Yellow Urine Appearance Clear (Clear) Urine pH 7.5 (4.5-7.5) Ur Specific Aneta 1.013 (1.000-1.030) Urine Protein Negative (Negative) Urine Glucose (UA) Negative (Negative) Urine Ketones Negative (Negative) Urine Blood Negative (Negative) Urine Nitrite Negative (Negative) Urine Bilirubin Negative (Negative) Urine Urobilinogen Negative (Negative) Ur Leukocyte Esterase Negative (Negative) Urine Comment Anaplasma Smear See Comment Babesia Smear See Comment Lyme Disease Screen Negative (Negative) Imaging Data Attestation: I personally reviewed and interpreted this imaging study as follows: My Impression: My interpretation of a portable chest x-ray does not show evidence for pulmonary edema, pneumothorax, cardiomegaly or pneumonia. Radiologist report was also reviewed with concurrence. Radiologist's Impression: Chest X-Ray 12/29/24 12:45 XR chest 1V portable CLINICAL HISTORY: Chest pain, nonspecific COMPARISON STUDY: Chest radiograph and chest CT July 24, 2023. FINDINGS: Lung volumes are at the lower limits of normal. Lungs are clear. There is no pneumothorax or pleural effusion. Cardiac size is stable. Mediastinal contours are normal. There is no evidence for pulmonary edema. IMPRESSION: No acute cardiopulmonary findings. ACT 112: Negative or not required by law. Electronically signed by: Kemar Collins M.D. 12/29/2024 1:36 PM ECG Data Attestation: I personally reviewed and interpreted this ECG as follows: Indication: + chest pain and + SOB/dyspnea Rate (beats per minute): 62 Rhythm: + normal sinus ECG Intervals/blocks: + Normal QRS, + Normal QT and + Normal IA ECG [place]: + Normal ECG ST segments: + Normal ST segments Comparison ECG Date: from (12/25/2023) Change: no significant change MDM Narrative Cardiac monitoring: An order was placed for continuous cardiac monitoring. The monitor shows a rate of 62 bpm with a normal sinus rhythm. premises technician history was reviewed throughout the evaluation, and no dysrhythmias were noted. See ED Course section for further details of today's visit. Patient presents with complaint of worsening exertional chest pain and shortness of breath while walking through the [place]. Symptoms have been evolving over the past few months, worsening over the past week. Today's initial workup does show a normal ECG and troponin. Chest x-ray was also normal. The patient does not have any other electrolyte abnormalities. Unfortunately, the patient does have notable risk factors as well as family history of coronary artery disease. HEART score is 4. The case was discussed with Dr. Moore, ED attending physician, who does also agree with further hospitalist evaluation. I discussed this with the patient as well, who was also in agreement. The case was therefore discussed with the [facility] hospitalist service, who does agree with admission. Please see their dictation for further treatment and final disposition. Impression Chest pain, exertional, Hyperlipidemia, Hypertension Discharge Plan Visit Data Chief Complaint: Chest Pain Stated Complaint: CHEST PAIN, SOB ED Provider: Serafin Moore ED Midlevel Provider: Eugene Plunkett Discharge Problem: Chest pain, exertional, Hyperlipidemia, Hypertension Patient Disposition: Admitted As Inpatient Condition: Fair Discharge Instructions Interventions: ED Discharge Assessment Last Done: 12/29/24 16:18 ED DC CONDITION Conditon at Discharge Condition at Discharge: Fair
[2024-12-29 13:43] LABS: Hematocrit (blood only) 49.8 % (42.0-52.0); Hemoglobin 17.4 g/dL (14.0-18.0); Immature Granulocytes # (auto) 0.00 K/uL (0.01-0.20); Immature Granulocytes % (auto) 0.0 %; Mean Corpuscular Hemoglobin 31.0 pg (25.0-34.0); Mean Corpuscular Volume 88.6 fL (80.0-100.0); Platelet Count 252 K/uL (130-400); RDW Standard Deviation 41.1 fL (36.4-46.3); Red Blood Count 5.62 M/uL (4.70-6.10); White Blood Count 5.74 K/ul (4.8-10.8)
[2024-12-29 14:07] LABS: Alanine Aminotransferase 31.0 U/L (7-52); Albumin Globulin Ratio 1.4 (0.9-2); Albumin Level 4.4 gm/dl (3.4-5.0); Alkaline Phosphatase 57.0 U/L (34-104); Anion Gap 8.0 (3-11); Bilirubin,Total 0.9 mg/dl (0.2-1.0); Blood Urea Nitrogen 16.0 mg/dl (6-23); Calcium 9.3 mg/dl (8.6-10.3); Carbon Dioxide 25.0 mmol/L (21-32); Chloride 105.0 mmol/L (98-107); Creatinine Clr Calc Pharmacy 97.8 ml/min; Globulin 3.1 gm/dl (2.5-4.0); Glucose 110.0 mg/dl (70-99(Fasting)); Potassium 3.4 mmol/L (3.5-5.1); Sodium 138.0 mmol/L (136-145); Total Protein 7.5 gm/dl (6.0-8.3)
[2024-12-29 14:13] LABS: Appearance Urine Clear (Clear); Glucose Urine UA Negative (Negative)
[2024-12-29 14:16] LABS: INR 1.0 (0.9-1.1); Partial Thromboplastin Time 29 Seconds (21-31); Prothrombin Time 11.0 Seconds (9.0-12.0)
[2024-12-29] MEDS: ONDANSETRON INJ 2 MG/ML 2 ML VIAL IV STA (14:40)
[2024-12-29] MEDS: NITROGLYCERIN SL 0.4 MG/TAB TAB SL PRN (14:40)
--- NOTE | 2024-12-29 16:22 | History & Physical Report ---
Date of Service December 29, 2024 Assessment & Plan (1) Chest pain, exertional: Plan: Patient presents to the hospital with exertional shortness of breath and central chest pressure. Has been going on and off for a couple of years, sees cardiology. However over the past couple of days shortness of breath and chest pressure have gotten worse as he prepares for hunting season. Has had stress echo done in the past which was normal However will admit to the hospital, consult cardiology, may need another stress test Troponin within normal limits EKG did not show any ST changes Repeat 2D echo Consult cardiology (2) Hypertension: Plan: Blood pressure is under good control Continue home medications (3) Ascending aortic aneurysm: Plan: Aneurysm has been stable Continue outpatient follow-up (4) Pulmonary nodule: Plan: Multiple pulmonary nodules Continue outpatient follow-up (5) Alcaraz's palsy: Plan: Alcaraz's palsy from Plan Admit to telemetry Full code History of Present Illness Chief Complaint: sob, chest pressure Primary Care Provider: George Olivares DO This is a 64-year-old male with a history of hypertension, stable thoracic ascending aortic aneurysm, obstructive sleep apnea, who presents to the hospital today on account of worsening shortness of breath chest pressure. According to the patient, he has been getting ready for the hunting season and noticed that he has become increasingly short of breath even on mild exertion. Although by his own admission, he has been having on and off chest pressure and shortness of breath for the past couple of years, and follows up with cardiology. However due to worsening shortness of breath on mild exertion and chest pressure he decided to come to the hospital further evaluation. Of note, he has had dobutamine stress test done in the past, which was normal and also has had a loop recorder in the past which picked up bradycardia. Here in emergency department, initial troponin was normal however due to his significant family history of heart disease and also worsening chest pressure he will be admitted to the hospital for further management. Allergies Allergy/AdvReac Type Severity Reaction Status Date / Time clarithromycin Allergy Mild HIVES Verified 12/29/24 16:00 nut - unspecified Allergy Mild mouth Verified 12/29/24 16:00 ulcers Penicillins Allergy Unknown HIVES Verified 12/29/24 16:00 Sulfa (Sulfonamide Allergy Unknown HIVES Verified 12/29/24 16:00 Antibiotics) ciprofloxacin AdvReac Severe Contraindicated Verified 12/29/24 16:00 by aneurysm aspirin AdvReac Mild STOMACH Verified 12/29/24 16:00 ISSUES amlodipine AdvReac Unknown LEG Verified 12/29/24 16:00 SWELLING crestor AdvReac Mild Muscle Pain Uncoded 12/29/24 16:00 fluoroquinolones AdvReac Unknown Unknown Uncoded 12/29/24 16:00 Home Medications Medication Instructions Recorded Confirmed Type multivitamin 1 tab PO QAM 07/05/18 12/29/24 History cholecalciferol (vitamin D3) 25 1,000 unit PO DAILY 07/30/18 12/29/24 History mcg (1,000 unit) capsule (Vitamin D3) magnesium 200 mg tablet 200 mg PO DAILY 07/30/18 12/29/24 History albuterol sulfate 90 mcg/actuation 2 puff inhalation Q6H PRN 04/18/22 12/29/24 Rx aerosol inhaler shortness of breath or wheezing #8.5 grams CPAP Supplies #1 ea 09/19/22 09/11/24 Rx meclizine 50 mg tablet 50 mg PO DAILY PRN dizziness #60 01/17/23 12/29/24 Rx tabs clonazepam 0.5 mg tablet 0.25 mg PO TID PRN Anxiety 07/06/23 12/29/24 History esomeprazole magnesium 40 mg 40 mg PO DAILY #60 caps 07/31/23 12/29/24 Rx capsule,delayed release potassium chloride 20 mEq 40 meq (2 x 20 mEq) PO HS #180 tabs 01/07/24 12/29/24 Rx tablet,extended release amlodipine 5 mg-valsartan 160 mg See Rx Instructions .Route 04/24/24 12/29/24 Rx tablet .COMPLEX #90 tabs psyllium husk 0.52 gram capsule 1.04 g PO DAILY 04/24/24 12/29/24 History nystatin-triamcinolone 100,000 1 applic topical BID PRN Rash 09/11/24 12/29/24 History unit/g-0.1 % topical cream hydrochlorothiazide 25 mg tablet 25 mg PO DAILY #90 tabs 09/24/24 12/29/24 Rx Past Med/Surg History Problem List (Updated 12/29/24 @ 15:42 by Eugene Plunkett) Hypertension (Acute) Hyperlipidemia (Acute) Chest pain, exertional (Acute) Gross hematuria Hyperlipidemia Vertigo Pre-diabetes Medical History (Updated 12/29/24 @ 15:42 by Eugene Plunkett) Benign localized prostatic hyperplasia with lower urinary tract symptoms (LUTS) Sleep apnea CPAP monitored by PCP GERD (gastroesophageal reflux disease) HTN (hypertension) Pulmonary nodule Ct 07/2023, repeat 6 mos Aortic regurgitation Ascending aortic aneurysm (~08/2023) Following with [facility], Obesity, class 2 Arnold-Chiari malformation, type I (~2006) not seen on most recent MRI 2018 Statin myopathy Diverticulosis Left-sided tinnitus Sensorineural hearing loss (SNHL) of left ear with unrestricted hearing of right ear Kidney stones, calcium oxalate Restless legs syndrome Multiple pulmonary nodules (~2007) Completed Evaluation Cyst of kidney, acquired (~2014) H. 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 Surgical History History of colonoscopy Colonoscopy: 08/02/21. Repeat [address] Jose. Lipomatous ileoceccal valve biopsied. No pathology report available. Per GI notes 01/26/22 plan to repeat in 10 years. History of dental surgery History of cholecystectomy Family History Mother Discoid lupus Hypertension Breast cancer Father Prostate cancer FHx: kidney cancer Grandfather Colon cancer Cardiac disorder Myocardial infarction Uncle Colon cancer Denies family history of Ovarian cancer Diabetes Stroke Social History Smoking Status: Never smoker Second Hand Exposure: No; Do You Dip or Chew Tobacco: No; Hx Alcohol Use: Yes Alcohol type: beer Alcohol Intake Frequency Comment: occassional Hx Substance Use: No Preferred Language: Kazakh Communication Ability: Effective Visual Impairment: Limited Hearing Ability: Normal 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 Physical Exam Physical Exam: The patient is awake, alert and oriented 3, well developed and well nourished, normocephalic and atraumatic, lying in bed and in no acute distress. HEENT--PERRL, EOMI, mucous membranes and oropharynx mildly dry Neck--supple. No JVD. No bruits. Thyroid normal, trachea midline, no adenopathy. Heart--normal S1 and S2. No murmurs, rubs or gallops. Lungs--clear bilaterally, no respiratory distress, no accessory muscle use. Abdomen--normal bowel sounds and soft. Extremities--no cyanosis or clubbing. trace leg edema. Dermatologic--normal skin turgor, normal color, no abnormal lymph nodes, no rash. Neurologic--cranial nerves II through XII grossly intact. Rheumatologic--normal range of motion. Psychiatric--normal affect. Results & Data Results & Data Vital Signs (Past 12 Hours) Vital Signs Temp Pulse Pulse Resp BP BP Pulse Ox 12/29/24 16:00 58 L 16 140/95 95 12/29/24 14:52 61 20 135/72 90 12/29/24 14:36 54 L 23 155/87 H 95 12/29/24 13:14 59 L 12/29/24 13:10 60 20 94 12/29/24 13:10 94 12/29/24 12:41 97.9 F 68 18 178/92 H 96 O2 Del Method 12/29/24 16:00 Room Air 12/29/24 14:52 Room Air 12/29/24 14:36 Room Air 12/29/24 13:14 12/29/24 13:10 Room Air 12/29/24 13:10 Room Air 12/29/24 12:41 Room Air PG Care Time/CCT Total # of Minutes Spent Total Time Spent with Patient: Total time spent is greater than 50% in coordination of care (as documented) at patient's floor/unit and/or counseling patient: Coding Level of Care Code 25662 INT INP/OBS CARE 2/55MIN Diagnoses Chest pain, exertional R07.9 Hypertension I10 Ascending aortic aneurysm I71.21 Pulmonary nodule R91.1 Alcaraz's palsy G51.0 Time Spent (min) 55
[2024-12-29] MEDS ORDERED: clonazePAM 0.5 MG TAB PO PRN (16:40)
[2024-12-29] MEDS ORDERED: ACETAMINOPHEN 325 MG TAB PO PRN (16:40)
[2024-12-29] MEDS ORDERED: ALBUTEROL HFA 8 GM INHALER INH PRN (16:40)
[2024-12-29] MEDS: PNEUMOCOCCAL VACCINE (PCV20) 20-VAL CONJ-DIP CRM/PF 0.5 ML SYR IM ONE (21:58)
[2024-12-30 08:03] VITALS: RESP 18
[2024-12-30] MEDS: POTASSIUM CHLORIDE CRTAB 20 MEQ TABCR PO SCH (08:40)
[2024-12-30] MEDS: CHOLECALCIFEROL 25 MCG (1000 UNITS) TAB PO SCH (08:40)
[2024-12-30] MEDS: hydroCHLOROthiazide 25 MG TAB PO SCH (08:40)
[2024-12-30] MEDS: VALSARTAN 80 MG TAB PO SCH (08:41)
[2024-12-30] MEDS ORDERED: Nursing to Pharmacy Communication SCH (08:47)
[2024-12-30] MEDS: MAGNESIUM OXIDE 400 MG TAB PO SCH (09:29)
--- NOTE | 2024-12-30 09:39 | XCELERA ---
[id number]
--- NOTE | 2024-12-30 10:57 | Cardiology Consultation ---
Date of Consultation December 30, 2024 Assessment & Plan (1) Chest pain, exertional: Negative DSE 07/2023 Chest CTA 07/2023trivial coronary calcification 2. Thoracic ascending aortic aneurysm4.3 cm 07/2023, seen by [facility] cardiac surgery 3. HypertensionCCB/ARB/thiazide 4. Palpitationsno arrhythmia on ILR 5. Bradycardiaectopic atrial rhythm 6. Concentric LVH 7. Mild aortic regurgitation 8. GERD 9. Class I obesity, prediabetes, JACK Weeks of exertional shortness of breath and atypical chest pain. Symptoms somewhat different than prior GERD/indigestion. Initial cardiac testing unremarkable. No other clear noncardiac etiologies for symptoms. Ascending aorta appears unchanged on echocardiogram. Low suspicion for ACS but with ASCVD risk factors reasonable rule out new high risk CAD. Plan: Will obtain exercise stress echo. Possible may not achieve target heart rate. If normal echocardiographic/hemodynamic response at moderate workloads feel safe for continued regular exertion including planned hunting. Continue home antihypertensives If stress test unremarkable okay with discharge today with routine cardiac follow-up Addendum: Did excellent on stress test. Exercised 9: 30 minutes, no exercise-induced chest pain. Normal echocardiographic and EKG response at 83% MPHR. This is a low risk study and okay with discharge this afternoon. History of Present Illness Attending Physician: Raman Solo MD History of Present Illness Mr. Preston is a very pleasant 64-year-old man mildly dilated thoracic aortic aneurysm with mild AI seen in hospital today due to exertional dyspnea and chest discomfort. Patient known to me from outpatient setting. Last seen 07/2024. Over the last few weeks has been getting ready for hunting season and is noted shortness of breath with activities that usually cause no problems. 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 Also with dealing some mild housework. He reports intermittent bilateral chest discomfort which can occur anytime. Has had GERD/indigestion symptoms in the past but this feels somewhat different. Over the weekend symptoms progressed and felt generalized fatigue leading to ED yesterday. No other new symptoms. In ED hypertensive in the 150s. ECG with no ST abnormalities. HS TropI, BNP and chest x-ray normal. Telemetry showed unchanged sinus bradycardia. Echocardiogram today showed normal RV function, no new wall motion abnormalities. Prior cardiac history: Initially seen by cardiology 12/2023 in the setting of chest pain. Prior cardiac history remarkable for palpitations for which previously had an implantable loop recorder, no arrhythmias have been noted. Other medical issues include hypertension, dyslipidemia, Arnold-Chiari brain malformation, pulmonary nodules, sleep apnea on CPAP, BPH, left-sided Alcaraz's palsy. He has a history of GERD and is previously seen GI. Chest pain had been a longstanding issue leading to ED visit 07/2023. HS TropI negative, ECG unchanged. Underwent dobutamine (no exercise due to prior difficulty achieving target heart rate) stress echo negative for ischemia, resting EF normal, mild LVH, mild AI. Chest CTA showed ascending aortic aneurysm (4.2 x 4.3 cm). No significant coronary artery calcification noted. Referred to Dr. Barrera at [facility]. Continued surveillance recommended. For chest pain was tried on Imdur but stopped due to headache. At last visit chest pain largely resolved. Seen by cardiac surgery 02/2024, repeat CTA unchanged at 4.3 cm. Most recent lipids 07/06: Total cholesterol 185, triglycerides 112, HDL 45, LDL 118, A1c 5.5 Most recent echo 06/2024: Mild LVH, EF 65%, normal RV, mild AI, normal RA/PA, ascending aorta 4.1 cm Family history: Sister had Takotsubo's. No history of premature CAD, cardiomyopathy or SCD Social history: Lifelong non-smoker. 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 . Friends with Kishor Matthews (aorta causes him anxiety). Allergies Allergy/AdvReac Type Severity Reaction Status Date / Time clarithromycin Allergy Mild HIVES Verified 12/29/24 16:00 nut - unspecified Allergy Mild mouth Verified 12/29/24 16:00 ulcers Penicillins Allergy Unknown HIVES Verified 12/29/24 16:00 Sulfa (Sulfonamide Allergy Unknown HIVES Verified 12/29/24 16:00 Antibiotics) ciprofloxacin AdvReac Severe Contraindicated Verified 12/29/24 16:00 by aneurysm aspirin AdvReac Mild STOMACH Verified 12/29/24 16:00 ISSUES amlodipine AdvReac Unknown LEG Verified 12/29/24 16:00 SWELLING crestor AdvReac Mild Muscle Pain Uncoded 12/29/24 16:00 fluoroquinolones AdvReac Unknown Unknown Uncoded 12/29/24 16:00 Home Medications Medication Instructions Recorded Confirmed Type multivitamin 1 tab PO QAM 07/05/18 12/29/24 History cholecalciferol (vitamin D3) 25 1,000 unit PO DAILY 07/30/18 12/29/24 History mcg (1,000 unit) capsule (Vitamin D3) magnesium 200 mg tablet 200 mg PO DAILY 07/30/18 12/29/24 History albuterol sulfate 90 mcg/actuation 2 puff inhalation Q6H PRN 04/18/22 12/29/24 Rx aerosol inhaler shortness of breath or wheezing #8.5 grams CPAP Supplies #1 ea 09/19/22 09/11/24 Rx meclizine 50 mg tablet 50 mg PO DAILY PRN dizziness #60 01/17/23 12/29/24 Rx tabs clonazepam 0.5 mg tablet 0.25 mg PO TID PRN Anxiety 07/06/23 12/29/24 History esomeprazole magnesium 40 mg 40 mg PO DAILY #60 caps 07/31/23 12/29/24 Rx capsule,delayed release potassium chloride 20 mEq 40 meq (2 x 20 mEq) PO HS #180 tabs 01/07/24 12/29/24 Rx tablet,extended release amlodipine 5 mg-valsartan 160 mg See Rx Instructions .Route 04/24/24 12/29/24 Rx tablet .COMPLEX #90 tabs psyllium husk 0.52 gram capsule 1.04 g PO DAILY 04/24/24 12/29/24 History nystatin-triamcinolone 100,000 1 applic topical BID PRN Rash 09/11/24 12/29/24 History unit/g-0.1 % topical cream hydrochlorothiazide 25 mg tablet 25 mg PO DAILY #90 tabs 09/24/24 12/29/24 Rx Patient History Medical History (Updated 12/29/24 @ 15:42 by Eugene Plunkett) Benign localized prostatic hyperplasia with lower urinary tract symptoms (LUTS) Sleep apnea CPAP monitored by PCP GERD (gastroesophageal reflux disease) HTN (hypertension) Pulmonary nodule Ct 07/2023, repeat 6 mos Aortic regurgitation Ascending aortic aneurysm (~08/2023) Following with [facility], Obesity, class 2 Arnold-Chiari malformation, type I (~2006) not seen on most recent MRI 2019 Statin myopathy Diverticulosis Left-sided tinnitus Sensorineural hearing loss (SNHL) of left ear with unrestricted hearing of right ear Kidney stones, calcium oxalate Restless legs syndrome Multiple pulmonary nodules (~2007) Completed Evaluation Cyst of kidney, acquired (~2014) H. 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 Surgical History History of colonoscopy Colonoscopy: 08/02/21. Repeat [address] Jose. Lipomatous ileoceccal valve biopsied. No pathology report available. Per GI notes 01/26/22 plan to repeat in 10 years. History of dental surgery History of cholecystectomy Family History Mother Discoid lupus Hypertension Breast cancer Father Prostate cancer FHx: kidney cancer Grandfather Colon cancer Cardiac disorder Myocardial infarction Uncle Colon cancer Denies family history of Ovarian cancer Diabetes Stroke Social History Smoking Status: Never smoker Second Hand Exposure: No; Do You Dip or Chew Tobacco: No; Hx Alcohol Use: Yes Alcohol type: beer Alcohol Intake Frequency Comment: occassional Hx Substance Use: No Preferred Language: Kiswahili Communication Ability: Effective Visual Impairment: Limited Hearing Ability: Normal Professor Criminal Justice Required: No Beliefs That Will Affect Care: None marital status: Current Living Situation: Spouse Current Living Situation Comment: 1 story house current occupational status: employed How many Children do You have: 2 Feels Safe at Home: Yes Childhood Exposure to Second-Hand Smoke: No Diet: regular caffeine: No Dental Care, Regularly: Yes Physical Activity Frequency: Daily Seatbelt Use: always Sunscreen Use: Yes Do you think of yourself as: straight/heterosexual Assistive Devices: None Review of Systems Review of Systems: All systems reviewed & are unremarkable except as noted in HPI & below Physical Exam Physical Exam: General: Comfortable HEENT: Sclerae anicteric Lungs: Clear to auscultation bilaterally, no crackles or wheezes Cardiac: Regular rate and rhythm, no murmurs. Vascular: 2+ radial, DP pulses. No bruits Abdomen: Soft, nontender Extremities: Well perfused, no peripheral edema Neuro: Nonfocal Psych: Alert orient x3, normal affect and mood Results & Data Vital Signs (Past 12 Hours) Vital Signs Temp Pulse Resp BP Pulse Ox O2 Del Method 12/30/24 08:02 97.9 F 51 L 18 153/78 H 94 Room Air 12/30/24 03:08 98.1 F 47 L 17 145/77 H 94 CPAP 12/29/24 23:04 97.5 F L 50 L 18 129/80 94 CPAP PG Care Time/CCT Total # of Minutes Spent Total Time Spent with Patient: Total time spent is greater than 50% in coordination of care (as documented) at patient's floor/unit and/or counseling patient: Coding Level of Care Code 01036 IN/OBS CONSULT LVL 4,60M Diagnoses Chest pain, exertional R07.9
--- NOTE | 2024-12-30 12:26 | Discharge Summary ---
Date of Service December 30, 2024 Admission HPI Per Admitting Provider This is a 64-year-old male with a history of hypertension, stable thoracic ascending aortic aneurysm, obstructive sleep apnea, who presents to the hospital today on account of worsening shortness of breath chest pressure. According to the patient, he has been getting ready for the hunting season and noticed that he has become increasingly short of breath even on mild exertion. Although by his own admission, he has been having on and off chest pressure and shortness of breath for the past couple of years, and follows up with cardiology. However due to worsening shortness of breath on mild exertion and chest pressure he decided to come to the hospital further evaluation. Of note, he has had dobutamine stress test done in the past, which was normal and also has had a loop recorder in the past which picked up bradycardia. Here in emergency department, initial troponin was normal however due to his significant family history of heart disease and also worsening chest pressure he will be admitted to the hospital for further management. Admission Exam (Per Admitting) Constitutional The patient is awake, alert and oriented 3, well developed and well nourished, normocephalic and atraumatic, lying in bed and in no acute distress. HEENT--PERRL, EOMI, mucous membranes and oropharynx mildly dry Neck--supple. No JVD. No bruits. Thyroid normal, trachea midline, no adenopathy. Heart--normal S1 and S2. No murmurs, rubs or gallops. Lungs--clear bilaterally, no respiratory distress, no accessory muscle use. Abdomen--normal bowel sounds and soft. Extremities--no cyanosis or clubbing. No edema. Dermatologic--normal skin turgor, normal color, no abnormal lymph nodes, no rash. Neurologic--cranial nerves II through XII grossly intact. Rheumatologic--normal range of motion. Psychiatric--normal affect. Discharge Data Consultations 12/29/24 15:33 ED Decision to Admit Stat 12/29/24 16:40 Consult Cardiology Routine Hospital Course (1) Chest pain, exertional: Patient presents to the hospital with exertional shortness of breath and central chest pressure. Has been going on and off for a couple of years, sees cardiology. However over the past couple of days shortness of breath and chest pressure have gotten worse as he prepares for hunting season. Has had stress echo done in the past which was normal However will admit to the hospital, consult cardiology, may need another stress test Troponin within normal limits EKG did not show any ST changes Repeat 2D echo was as before, no wall motion abnormality per cardiology, he Did excellent on stress test. Exercised 9: 30 minutes, no exercise-induced chest pain. Normal echocardiographic and EKG response at 83% MPHR. This is a low risk study and okay with discharge this afternoon. discharge home (2) Hypertension: Blood pressure is under good control Continue home medications (3) Ascending aortic aneurysm: Aneurysm has been stable Continue outpatient follow-up (4) Pulmonary nodule: Multiple pulmonary nodules Continue outpatient follow-up (5) Alcaraz's palsy: Alcaraz's palsy from Plan discharge home Coding Level of Care Code 31206 INP/OBS DISCH >30 MIN Diagnoses Chest pain, exertional R07.9 Hypertension I10 Ascending aortic aneurysm I71.21 Pulmonary nodule R91.1 Alcaraz's palsy G51.0 Time Spent (min) 35
[2024-12-30 12:50] VITALS: BP 146/77; PULSE 60; TEMP 98.1; O2SAT 95
--- NOTE | 2024-12-30 17:54 | XCELERA ---
[id number]
--- NOTE | 2024-12-30 22:04 | Electrocardiogram Report ---
Test Reason : Blood Pressure : */* mmHG Vent. Rate : 62 BPM Atrial Rate : 62 BPM P-R Int : 200 ms QRS Dur : 76 ms QT Int : 416 ms P-R-T Axes : * 7 14 degrees QTcB Int : 422 ms Ectopic atrial rhythm Otherwise normal ECG When compared with ECG of 25-Dec-2023 12:50, No significant change Confirmed by Dennis Palacios ([id number]) on 12/30/2024 10:03:54 PM Referred By: Confirmed By: Dennis Palacios
== END 2024-12-30 14:06 | disposition home or self-care (01) | DRG 313 ==
LOC: ED 12:35 → 2S 15:48